=== PATIENT | female | born 1995 | race Caucasian/White ===

== ENCOUNTER → 2016-08-14 | Outpatient (CLI) | payer OTHER ==
[~2016-08-14] MED LIST: BCPILLS PO; OXYC-57 PO
--- NOTE | 2016-08-15 10:27 | DIAGNOSTIC IMAGING REPORT ---
MRI OF THE RIGHT ELBOW WITHOUT CONTRAST CLINICAL HISTORY: Anterior right elbow pain. Loose body. COMPARISON STUDY: No previous studies for comparison. TECHNIQUE: Utilizing a 1.5 Sirisha magnet and dedicated coil, multiplanar, multi echo imaging of the right elbow was performed without intravenous or intra-articular contrast. FINDINGS: Alignment of the right elbow is anatomic. There is a small elbow joint effusion. Note is made of a 0.9 x 0.4 cm T1 and T2 hypointense abnormality within the anterior aspect of the joint space, located immediately anterior to the intercondylar region of the right humerus. No additional loose bodies are identified. The triceps insertion is intact. The insertion of the long head of biceps tendon is intact. The ulnar collateral ligament appears intact. The radial collateral ligament is suboptimally assessed but likely intact. Note is made of mild subchondral signal abnormality within the capitellum with irregularity of the overlying cartilage. IMPRESSION: 1. Small right elbow joint effusion with a 9 mm x 4 mm loose body anterior to the intercondylar portion of the distal right humerus. 2. Subchondral signal abnormality and overlying cartilage abnormality of the capitellum which suggests an osteochondral defect. Electronically signed by: Sven Lucas M.D. 08/15/2016 10:26 AM Dictated Date/Time: 08/14/2016 6:42 PM
== END | disposition home or self-care (01) ==
LOC: C.MRIBC 16:14
PROVIDERS: ATTEND Orthopaedic Surgery
DX: M24.021 Loose body in right elbow (principal); M25.521 Pain in right elbow; M25.421 Effusion, right elbow

== ENCOUNTER → 2016-08-28 | Day surgery (SDC) | payer OTHER ==
[2016-08-27 13:51] VITALS: Ht 167.6 cm; Wt 90.9 kg
[~2016-08-28] VITALS: Ht 167.6 cm; Wt 90.9 kg
[~2016-08-28] MED LIST changes: +ATROPINE SULFATE 0.1 MG/ML 5ML SYR IV PRN; +BUPIVACAINE/EPINEPHRINE 0.25% 1:200,000 30 ML VIAL ONE; +CEFAZOLIN 2000 MG/60 ML D5W IV SCH; +DEXAMETHASONE SOD INJ 4 MG/ML VIAL ONE; +EpHEDrine SULFATE INJ 50 MG/ML AMP IV PRN; +EpINEphrine INJ 1MG/ML AMP 1 MG/ML AMP ONE; +FENTANYL CITRATE INJ 50 MCG/1 ML 2 ML VIAL IV PRN; +FENTANYL CITRATE INJ 50 MCG/1 ML 2 ML VIAL ONE; +LACTATED RINGER'S 1000ML 1,000 ML IV SCH; +LIDOCAINE HCL 2% 2 ML VIAL (20MG/ML) ONE; +MIDAZOLAM HCL 1 MG/ML 2ML VIAL ONE; +ONDANSETRON INJ 2 MG/ML 2 ML VIAL IV PRN; +ONDANSETRON INJ 2 MG/ML 2 ML VIAL ONE; +OXYCODONE/ACETAMINOPHEN 5-325 TAB PO PRN; +PROPOFOL IV EMULSION 10 MG/ML 20 ML VIAL IV ONE; +SODIUM CHLORIDE 0.9% 1000ML 1,000 ML IV SCH
--- NOTE | 2016-08-28 10:56 | History & Physical Bridge - [place] ---
H&P Re-Evaluation Bridge Note: I have examined the patient, reviewed the History & Physical and in the interval since the performance of the History & Physical I have noted the following changes of clinical significance: No changes noted
--- NOTE | 2016-08-28 12:51 | Discharge Instructions-SurgCtr ---
Discharge Instructions Date of Service Aug 28, 2016. Visit Reason for Visit: Loose Body In Elbow Joint Discharge Discharge Diagnosis / Problem: SAME ABOVE Discharge Goals Goal(s): Decrease discomfort, Improve function Activity Recommendations Activity Limitations: as noted below Lifting Limitations: gradually increase as tolerated Exercise/Sports Limitations: gradually increase as tolerated Anesthesia . Post Anesthesia Instructions: If you have had General Anesthesia or IV Sedation: * Do not drive today. * Resume driving when surgeon permits. * Do not make important decisions or sign legal documents today. * Call surgeon for: 1. Temperature elevations greater than 101 degrees F. 2. Uncontrollable pain. 3. Excessive bleeding. 4. Persistent nausea and vomiting. 5. Medication intolerance (nausea, vomiting or rash). * For nausea and vomiting use only clear liquids such as: tea, soda, bouillon until nausea subsides, then gradually increase diet as tolerated. * If you have any concerns or questions, call your surgeon's office. If physician is unavailable and it is an emergency, call 911 or go to the nearest emergency room. . Instructions / Follow-Up Instructions / Follow-Up MEDICATIONS: * Resume previous medications unless instructed otherwise by your surgeon. * Always take pain medication on a full stomach or with food to avoid upset stomach. * Do not drink alcohol or drive while taking narcotics. * Ibuprofen or Tylenol may be taken if narcotic not needed. SPECIAL CARE INSTRUCTIONS: __ None _X_ Keep extremity elevated and iced x 48 hours; apply ice 20-30 minutes 8-10 times/day. May remove at night. _X_ Sling (WEAR NEEDED FOR COMFORT) __24 hrs/day __ Remove at night __ Shoulder Immobilizer __ 24 hrs/day __ Remove at night _X_ Dressing __ Maintain until seen in office, may shower with plastic over site _X_ Remove dressings in 5 DAYS. MAY SHOWER OR BATH IF AMY WRAP AND DRESSINGS STAY DRY _X_ Cover incisions with band-aids after showering __ Do not remove steri-strips Call physician if chills or temperature rises above 102 degrees or pain unrelieved by prescribed pain medications at . . Diet Recommendations Home Diet: no limitations Fluid Restriction: None Procedures Procedures Performed: Right Elbow Arthroscopy Removal Loose Body Pending Studies Studies pending at discharge: no Work Instructions Return To Work: after follow-up Lifting Limitations: no more than 10 pounds School Instructions Return To School: time frame (WHEN PAIN IS TOLERABLE. THURSDAY AT THE EARLIEST ) Medical Emergencies . Who to Call and When: Medical Emergencies: If at any time you feel your situation is an emergency, please call 911 immediately. . Non-Emergent Contact Non-Emergency issues call your: Primary Care Provider Call Non-Emergent contact if: you have a fever, temperature is above 101.5 . . "Provider Documentation" section prepared by Thomas Howe.
--- NOTE | 2016-08-28 13:07 | Anesthesia Progress Nt - [facility] ---
Anesthesia Post Op Note Date & Time Aug 28, 2016 at 13:06 Vital Signs Pain Intensity: 0 Vital Signs Past 12 Hours Date Time Temp Pulse Resp B/P Pulse Ox O2 Delivery O2 Flow Rate FiO2 08/28/16 12:55 128/88 08/28/16 12:54 93 21 08/28/16 12:54 93 21 100 08/28/16 12:50 133/79 08/28/16 12:49 107 08/28/16 12:49 107 125/82 100 08/28/16 12:49 37.0 103 16 133/79 100 Mask 8 08/28/16 10:12 36.7 71 16 122/70 97 Room Air Notes Mental Status: alert / awake / arousable, participated in evaluation Pt Amnestic to Procedure: Yes Nausea / Vomiting: adequately controlled Pain: adequately controlled Airway Patency, RR, SpO2: stable & adequate BP & HR: stable & adequate Hydration State: stable & adequate Anesthetic Complications: no major complications apparent
[2016-08-28 13:13] VITALS: TEMP 37
--- NOTE | 2016-08-28 13:27 | [facility] Post Operative Brief Note ---
Immediate Operative Summary Operative Date Aug 28, 2016. Pre-Operative Diagnosis Right Elbow Loose Body Post-Operative Diagnosis Same Procedure(s) Performed Right Elbow Arthroscopy Removal Loose Body Surgeon Dr. Bender Staffing Account Manager Surgeon(s) Andria Howe PA-C Estimated Blood Loss 2ml Findings as above Specimens None Complication(s) None Disposition Recovery Room / PACU
--- NOTE | 2016-08-28 13:44 | OPERATIVE REPORT ---
DATE OF OPERATION: 08/28/2016 PREOPERATIVE DIAGNOSIS: Loose body of the right elbow. POSTOPERATIVE DIAGNOSIS: Same. PROCEDURE: Right elbow arthroscopy with removal of loose body. SURGEON: Dr. Santos Bender. REVENUE AUDIT CLERK: Ricardo Howe PA-C, whose assistance was necessary for positioning of the elbow and helping with arthroscopic instrumentation. ANESTHESIA: General. COMPLICATIONS: None. CONDITION: Stable to PACU. INDICATIONS: Ifeoma is a pleasant 20-year-old female who presented to my office with a several-week history of right elbow pain. X-rays and MRI showed a large far anterior loose body and a small OCD lesion off the capitellum. She did not have any pain over the capitellum. All her pain was related to loose body. She elected to undergo arthroscopic loose body excision. DESCRIPTION OF PROCEDURE: On 08/28/2016, she arrived at [facility] for the above procedure. She was seen in the preoperative holding area and the operative extremity was identified and signed. She was given preoperative antibiotic, taken back to the operating room, laid on the table in supine position and put under general anesthesia. She was then put in a lateral decubitus position. The right elbow was then prepped and draped in sterile fashion. A time-out was done and the patient and operative extremity was properly identified. A 2.7-mm arthroscope was entered through an anterior superior portal. Diagnostic arthroscopy showed a large loose body within the anterior coronoid fossa. A proximal anterior medial portal was made with a spinal needle. The portal site was slightly enlarged and a [employer] retriever was used to grab the loose body and pull out of the medial portal. The loose body was measured to be 1 cm x 1 cm. A final diagnostic arthroscopy showed no additional pathology. The scope was placed in the medial portal and I did not appreciate any large lesions off the capitellum. Multiple pictures were taken. Arthroscopic instruments were removed from the elbow. Portal sites were closed with 3-0 nylon. She was then placed in a soft dressing, extubated, transferred to a litter and taken to the postanesthesia care unit in stable condition. She tolerated the procedure well. I attest to the content of the Intraoperative Record and any orders documented therein. Any exceptio ns are noted below.
[2016-08-28 13:55] VITALS: BP 117/82; PULSE 71; O2SAT 97
== END | disposition home or self-care (01) ==
LOC: X.SURG 09:58
PROVIDERS: ATTEND Orthopaedic Surgery
DX: M24.021 Loose body in right elbow (principal)